=== PATIENT | female | born 1960 | race Caucasian/White ===

== ENCOUNTER → 2023-12-22 13:34 | Outpatient (REF) | payer OTHER, SELFPAY | LOC: RAD 13:34 | PROVIDERS: ATTENDING PHYSICIAN Surgery Vascular Surgery | DX: I87.2 Venous insufficiency (chronic) (peripheral) (principal) | CPT/HCPCS: 93971 ==

== ENCOUNTER → 2024-01-07 09:23 | Outpatient (REF) | payer OTHER, SELFPAY | LOC: HWRAD 09:23 | PROVIDERS: ATTENDING PHYSICIAN Otolaryngology; FAMILY PHYSICIAN Internal Medicine | DX: J32.0 Chronic maxillary sinusitis (principal) | CPT/HCPCS: 70486 ==

== ENCOUNTER 2024-02-03 06:01 | Day surgery (SDC) | payer OTHER, SELFPAY ==
[2024-01-29 09:45] VITALS: BMI 24.0
[2024-01-29 10:25] LABS: PT 12.6 Sec (11.4-14.6)
[2024-01-29 10:26] LABS: % Basophils 0.4 % (0-2); % Eosinophils 2.3 % (0-6); % Immature Granulocytes 0.1 % (0-0.5); % Lymphocytes 47.2 % (20.5-51.1); % Monocytes 10.4 % (1.7-9.3); % Neutrophils 39.6 % (42.2-75.2); APTT 33.1 Sec (23.4-35.0); Absolute Eosinophils 0.2 10^3/uL (0-0.7); Absolute Lymphocytes 3.8 10^3/uL (1.2-3.4); Absolute Monocytes 0.8 10^3/uL (0.1-0.6); Absolute Neutrophils 3.2 10^3/uL (1.4-6.5); Hematocrit 41.2 % (37.0-47.0); Hemoglobin 13.7 g/dL (12.0-16.0); Mean Corp Hgb Conc. 33.3 g/dL (33.0-37.0); Mean Corpuscular Hgb 30.6 pg (27.0-31.0); Mean Platelet Volume 11.7 fL (7.4-10.4); Nucleated Red Blood Cells % 0 %; Platelet Count 310 10^3/uL (130-400); Red Blood Cell Count 4.48 10^6/uL (4.20-5.40); Red Cell Dist. Width 12.8 % (11.5-14.5)
[2024-01-29 11:07] LABS: Blood Urea Nitrogen 12 mg/dl (7-17); Calcium 9.6 mg/dl (8.4-10.2); Carbon Dioxide 24 mmol/L (22-30); Chloride 108 mmol/L (98-107); Estimated Creatinine Clearance 82 ml/min; Glucose 98 mg/dl (70-99); Potassium 4.3 mmol/L (3.5-5.1); Sodium 141 mmol/L (135-145); eGFR > 60.00
[2024-02-03] VITALS (9 sets, daily range): BP systolic 123–135; BP diastolic 80–86
[2024-02-03] MEDS: BACTROBAN NASAL 1 GRAM NASAL (06:54)
[2024-02-03] MEDS: PERIDEX 0.12% ORAL RINSE 15 ML PO (06:54)
[2024-02-03] MEDS: NSS 500 IV (06:54)
--- NOTE | 2024-02-03 07:16 | W.SUR.PREOP ---
Pre-Operative Surgical Note
-
I have examined this patient prior to the performance of the scheduled procedure.
The patient's condition is unchanged from the time of the current History and
Physical and the patient is able to undergo the scheduled procedure.
--- NOTE | 2024-02-03 08:59 | OR.RPT ---
Operative Report
Operative Report
Date of Operation: 02/03/2024
Pre Op Diagnosis: Left lower extremity venous insufficiency with symptomatic varicose veins
Post Op Diagnosis: Left lower extremity venous insufficiency with symptomatic varicose veins
Procedure:
1. Ligation and division of saphenofemoral junction
2. Radiofrequency endovenous ablation of left anterior accessory saphenous vein (mid thigh puncture site)
3. Stab phlebectomies of thigh and knee varicosities (4 stab incisions)
Surgeon: Yousif Soto III, MD
Founder And Chief Executive Officer: Chiki Harman MD PhD, PGY2
Anesthesia: Sedation/local
Complications: None
Estimated Blood Loss: Minimal
History and Indications for Procedure: 63-year-old female with prior endovenous ablation of the left great saphenous vein. She developed recurrent varicosities that were symptomatic over the anterior distal thigh and knee. Venous reflux ultrasound
demonstrated recurrent reflux in the saphenous vein with associated varicosities. She also had diffuse deep venous reflux. I recommended the procedure above.
Procedure in Detail: In the preoperative holding area while standing and with the assistance of Iris I marked the symptomatic varicosities over the distal thigh and knee. Iris De La Cruz was correctly identified and placed supine on the operating
table. After adequate induction of anesthesia the left leg was frog-legged and the table placed into a reverse Trendelenburg position. The left leg was prepped and draped in the usual sterile fashion. A timeout procedure was performed with the
nursing and anesthesia staff confirming the patient's identity as well as the nature and laterality of the procedure.
The saphenofemoral junction was marked at the skin level with ultrasound guidance. The anterior accessory saphenous vein was identified using ultrasound guidance and traced to the mid thigh. The vein was straight up until this point and a suitable
site for access was marked.
A vertical incision was made in the left groin. Sharp dissection and electrocautery were used to dissect out the saphenofemoral junction. Multiple branches were ligated and divided between silk ties. The anterior accessory saphenous vein was
accessed with a micropuncture needle under ultrasound guidance and the 7 [place] sheath was placed. The saphenofemoral junction was ligated and divided between silk ties. A 3 cm tip radiofrequency catheter was then passed through the 7 [place]
sheath through the anterior accessory saphenous vein and up to the point of the ligated vein in the groin. The position of the catheter was then externally marked using the white plastic doughnut on the catheter at the sheath exit site. Using
ultrasound guidance Tumescent solution was then infiltrated circumferentially around the vein from the sheath insertion site to the tip of the catheter . At this point the table was flattened out. The anterior accessory saphenous vein was then
ablated using 2 treatment cycles at each segment. Once completed the sheath and catheter were removed. Direct manual pressure was held on the puncture site and hemostasis was achieved. A sterile dressing was applied.
The groin incision was then irrigated with saline solution. The incision was then closed in layers and skin glue was applied. I then focused my attention on the stab phlebectomies. 4 separate small stab incisions were made over the previously
marked varicosities along the distal thigh and knee. Vein segments were pulled up through the stab incision proximally and distally as much as possible using a fine hook and hemostats and then avulsed. Manual pressure was held over the stab
incisions and hemostasis was achieved at each site. Skin glue was applied to each of the sites.
The patient's leg was cleaned and then wrapped with an Mateo wrap from the toes to the proximal thigh. The patient tolerated the procedure well was taken to the recovery room in good condition.
Attestation: I was present and responsible for the entire procedure
Signed:
Yousif Soto III, MD
[facility]
[phone] (cell)
--- NOTE | 2024-02-03 09:07 | W.IMMPOSTOP ---
Surgical Immed Post Op Note
-
Primary Surgeon: Dr. Yousif Soto III, MD
Assisting Surgeon: Chiki Harman MD, PhD (PGY-2)
Pre-op Diagnosis: Left lower extremity venous insufficiency
Post-op Diagnosis: Left lower extremity venous insuffiency
Procedure Performed: Lower extremity vein mapping with ultrasound, ligation of SFJ, ablation of accessory saphenous vein on left lower extremity, phlebectomy x4 of varicose veins in left lower extremity
Anesthesia Type: MAC
Specimen / Cultures: None
Estimated Blood Loss: Minimal
Complications: None
Operative Findings: The patient was brought to the OR and placed in the supine position. The patient was prepped and draped in usual sterile fashion. Ultrasound was used to map the insufficient veins in the left lower extremity, as well as the SFJ,
which were marked at the skin level. A cut down was performed over the SFJ. This was dissected using electrocautery and sharp dissection. Branches of the SFJ were ligated with 2-0 silk ties and divided. A radiofrequency catheter was then passed
through the 7Fr sheath through the anterior accessory saphenous vein and up to the ligated SFJ. Tumescent solution was injected around the vein. The accessory saphenous vein was ablated. The sheath and catheter were removed and a 4x4 with tegaderm
was applied to the site. The groin incision was closed with two layers of suture 3-0, 4-0, and skin glue. Four stab incisions were made to remove segments of varicosities in the lower extremity. Each stab incision site was closed with skin glue. The
patient was transported to the PACU in stable condition.
== END 2024-02-03 10:00 | disposition home or self-care (01) ==
LOC: CATH 06:01
PROVIDERS: ATTENDING PHYSICIAN Surgery Vascular Surgery; FAMILY PHYSICIAN Internal Medicine
DX: I83.892 Varicose veins of left lower extremity with other complications (principal); Z87.891 Personal history of nicotine dependence
CPT/HCPCS: 37700; 37799; 36475; 36415; 80048; 85025; 85610; 85730; 93005; Q9967